=== PATIENT | male | born 1985 | race Caucasian/White ===

== ENCOUNTER 2022-06-09 12:17 | Observation (INO) ==
[2022-06-09] MEDS ORDERED: SODIUM CHLORIDE 0.9% 1,000 ML IV STA (12:51)
[2022-06-09 13:05] LABS: Basophils # 0.1 10*3/uL (0.0-0.2); Basophils % 0.4 % (0.0-0.8); Eosinophils # 0.2 10*3/uL (0.0-0.87); Eosinophils % 1.5 % (0.00-10.9); Hematocrit 41.2 VOL% (42.0-52.0); Hemoglobin 14.7 GM/DL (14.0-18.0); Immature Granulocytes % 0.7 %; Immature Granulocytes Absolute 0.09 #; Lymphocytes # 2.8 10*3/uL (1.4-4.0); Lymphocytes % 19.9 % (21.2-54.2); Mean Corpuscular HGB Conc 35.7 GM/DL (32-36); Mean Corpuscular Volume 89.2 FL (87-102); Mean Platelet Volume 10.5 FL (9.6-12.0); Monocytes # 0.6 10*3/uL (0.11-0.8); Monocytes % 4.3 % (1.7-12.7); Neutrophils % 73.2 % (38.7-73.9); Platelet Count 228 T/CUMM (130-400); Red Blood Count 4.62 MC/CUMM (3.8-5.5); Red Cell Distribution Width 13.6 % (9.3-17.3); White Blood Count 13.8 T/CUMM (4-12)
[2022-06-09 13:16] LABS: PT Patient Result 10.9 SECS (10.1-12.1); Partial Thromboplastin Time 23.4 SECS (23.7-32.9)
[2022-06-09 13:24] LABS: Alanine Aminotransferase 41 U/L (16-61); Albumin 4.3 G/DL (3.4-5.0); Alkaline Phosphatase 109 U/L (45-117); Aspartate Amino Transferase 24 U/L (0-37); Blood Urea Nitrogen 12 MG/DL (7-18); Calcium 9.3 MG/DL (8.5-10.1); Carbon Dioxide 24 MMOL/L (21-32); Chloride 108 MMOL/L (98-107); Glucose 104 MG/DL (74-106); Osmolality,Calculated 280.3 MOS/KG (273-304); Potassium 3.3 MMOL/L (3.5-5.1); Sodium 141 MMOL/L (136-145)
[2022-06-09 13:41] LABS: Mucus,Urine Occasional /LPF (Occasional); RBC,Urine 2 /HPF (0-4)
[2022-06-09 13:42] LABS: Bilirubin,Urine Negative (Negative); Blood, Urine Moderate mg/dL (Negative); Glucose,Urine (UA) Negative (Negative); Ketones,Urine Trace mg/dL (Negative); Nitrite,Urine Negative (Negative); Protein,Urine 100 mg/dL (Negative); Urine Appearance Clear (Clear); Urine Color Yellow (Yellow); Urine Specific Gravity > 1.030 (1.001-1.035); Urine Urobilinogen 0.2 eU/dL (<2.0); Urine pH 5.5 (4.5-8.0)
[2022-06-09 14:14] LABS: Barbiturates Screen,Urine Negative (Negative); Benzodiazepines Screen,Urine Positive (Negative); Cannabinoid Screen,Urine Negative (Negative); Opiate Screen,Urine Negative (Negative); Phencyclidine Screen,Urine Negative (Negative)
[2022-06-09] MEDS ORDERED: SODIUM CHLORIDE 0.9% 2,600 ML IV ONE (15:26)
[2022-06-09] MEDS ORDERED: SODIUM CHLORIDE 0.9% 1,900 ML IV ONE (15:26)
[2022-06-09] MEDS ORDERED: ONDANSETRON 4 MG/2 ML VIAL IV PRN (15:28)
[2022-06-09] MEDS ORDERED: LORazepam 2 MG/1 ML VIAL IV PRN (15:28)
[2022-06-09] MEDS ORDERED: hydrALAZINE 20 MG/1 ML VIAL IV PRN (15:28)
[2022-06-09] MEDS ORDERED: ACETAMINOPHEN 325 MG TABLET PO PRN (15:28)
[2022-06-09] MEDS ORDERED: NICOTINE 21 MG/24 HR PATCH TRANSDERM PRN (15:28)
[2022-06-09] MEDS ORDERED: PIPERACILLIN/TAZOBACTAM 3,375 MG in SODIUM CHLORIDE 0.9% 100 ML IV SCH (15:30)
[2022-06-09] MEDS ORDERED: NITROGLYCERIN SL 0.4 MG TABLET SL PRN (15:43)
[2022-06-09 16:04] LABS: Thyroid Stimulating Hormone 0.924 uIU/ml (0.358-3.74)
[2022-06-09] MEDS ORDERED: PNEUMOCOCCAL VACCINE (23 VALENT) 0.5 ML VIAL IM ONE (20:55)
[2022-06-09] MEDS: METOPROLOL SUCCINATE XL 50 MG TABLET PO SCH (22:28)
[2022-06-09] MEDS ORDERED: traZODone 50 MG TABLET PO SCH (22:30)
[2022-06-09] MEDS ORDERED: ATORVASTATIN 40 MG TABLET PO SCH (22:30)
[2022-06-10 06:20] LABS: Basophils # 0.1 10*3/uL (0.0-0.2); Basophils % 0.4 % (0.0-0.8); Eosinophils # 0.1 10*3/uL (0.0-0.87); Eosinophils % 1.2 % (0.00-10.9); Hematocrit 40.4 VOL% (42.0-52.0); Hemoglobin 14.1 GM/DL (14.0-18.0); Immature Granulocytes % 0.4 %; Immature Granulocytes Absolute 0.05 #; Lymphocytes # 2.3 10*3/uL (1.4-4.0); Lymphocytes % 20.1 % (21.2-54.2); Mean Corpuscular HGB Conc 34.9 GM/DL (32-36); Mean Corpuscular Volume 90.8 FL (87-102); Mean Platelet Volume 10.9 FL (9.6-12.0); Monocytes # 0.5 10*3/uL (0.11-0.8); Monocytes % 4.8 % (1.7-12.7); Neutrophils % 73.1 % (38.7-73.9); Platelet Count 213 T/CUMM (130-400); Red Blood Count 4.45 MC/CUMM (3.8-5.5); Red Cell Distribution Width 13.9 % (9.3-17.3); White Blood Count 11.2 T/CUMM (4-12)
[2022-06-10 06:42] LABS: Albumin 3.8 G/DL (3.4-5.0); Bilirubin,Total 0.8 MG/DL (0.20-1.00); Calcium 8.9 MG/DL (8.5-10.1); Osmolality,Calculated 281.1 MOS/KG (273-304); Potassium 3.7 MMOL/L (3.5-5.1); Total Protein 6.4 G/DL (6.4-8.2)
[2022-06-10 08:12] VITALS: BP 151/105
[2022-06-10] MEDS ORDERED: amLODIPine 5 MG TABLET PO SCH (09:00)
[2022-06-10] MEDS ORDERED: lisinopriL 20 MG TABLET PO SCH (09:00)
[2022-06-10] MEDS ORDERED: PNEUMOCOCCAL VACCINE (23 VALENT) 0.5 ML VIAL IM ONE (09:00)
[2022-06-10] MEDS ORDERED: CLOPIDOGREL 75 MG TABLET PO SCH (09:00)
[2022-06-10] MEDS ORDERED: ASPIRIN EC 81 MG TABLET PO SCH (09:00)
[2022-06-10] MEDS ORDERED: INFLUENZA VIRUS VACCINE 0.5 ML SYRINGE IM ONE (09:00)
[2022-06-10 09:29] LABS: Hepatitis B Core IgM Quant 0.15 Index; Hepatitis B Surface Ag Quant < 0.10 Index; Hepatitis B Surface Ag Result Non-Reactive (NonReactive); Hepatitis C Virus Ab Quant 0.19 Index; Hepatitis C Virus Ab Result Non-Reactive (NonReactive)
[2022-06-10 09:36] LABS: Albumin 3.8 G/DL (3.4-5.0); Bilirubin,Direct 0.13 MG/DL (0.0-0.20); Bilirubin,Indirect 0.6 MG/DL (0.0-1.0); Bilirubin,Total 0.7 MG/DL (0.20-1.00); Total Protein 6.5 G/DL (6.4-8.2)
[2022-06-10] MEDS: METOPROLOL SUCCINATE XL 50 MG TABLET PO SCH (09:39)
== END 2022-06-10 13:23 | disposition home or self-care (01) ==
LOC: EDBD → EDUNIT# → N.ED 12:17 → N.EDINP 12:17 → SUATTDRO 15:25 → N.2W 19:20
PROVIDERS: ADMIT Emergency Medicine; ATTEND Internal Medicine